=== PATIENT | male | born 1965 | race Caucasian/White ===

== ENCOUNTER → 2016-11-29 | Outpatient (CLI) | payer MEDICAID | LOC: RAD 14:42 | PROVIDERS: ATTEND Nurse Practitioner Adult Health | DX: R91.8 Other nonspecific abnormal finding of lung field (principal) | CPT/HCPCS: 71250 ==

== ENCOUNTER 2017-02-17 06:50 | Emergency (ER) | payer MEDICAID ==
[2017-02-17] MEDS ORDERED: NORMAL SALINE 1000 ML 1,000 ML IV ONE (07:53)
--- NOTE | 2017-02-17 07:56 | ER Document Report ---
ED General - General Time seen by provider: 07:45 Mode of Arrival: Ambulatory Information source: Patient TRAVEL OUTSIDE OF THE [place] IN LAST 30 DAYS: No - HPI Onset: Other - see HPI note <IMER CARVALHO - Last Filed: 02/17/17 09:10> <LON MEEKS - Last Filed: 02/17/17 11:38> - General Chief Complaint: Bloody Stools Stated Complaint: ABDOMINAL PAIN,BLOOD IN URINE AND STOOL Notes: Patient is a 51 year old male presenting to the ED for hematuria and abdominal pain. Patient states he has had hematuria since Saturday night. Patient states this morning he had clots in his urine. Patient states his lower right abdominal pain radiates into his scrotum. On the patient had a bowel movement that was bloody with mucus. Patient also complains of some flank pains that started last night and have continued into this morning. Patient has a history of diabetes mellitus but is unmedicated; patient states his doctor ran his blood work and he had an A1C of 9.2. Patient states his doctor told him to change his diet for 60 days and then they will test the blood work again. Patient also has a history of COPD but states he has cut back on his smoking. Patient has no known allergies. (IMER CARVALHO) - Related Data Allergies/Adverse Reactions: No Known Allergies Allergy (Unverified 02/17/17 06:53) Past Medical History - General Information source: Patient - Social History Smoking Status: Current Every Day Smoker Cigarette use (# per day): Yes - 1.5 packs per week Family History: None Patient has suicidal ideation: No Patient has homicidal ideation: No Pulmonary Medical History: Reports: Hx COPD Endocrine Medical History: Reports: Hx Diabetes Mellitus Type 2 - not treated with medication Past Surgical History: Reports: Hx Orthopedic Surgery - anterior cervical fusion of C4-C5, Other - left chest pulmonary nodule removed - Immunizations Hx Diphtheria, Pertussis, Tetanus Vaccination: Yes <IMER CARVALHO - Last Filed: 02/17/17 09:10> Review of Systems - Review of Systems Constitutional: No symptoms reported EENT: No symptoms reported Cardiovascular: No symptoms reported Respiratory: No symptoms reported Gastrointestinal: See HPI, Abdominal pain, Black stools. denies: Diarrhea Genitourinary: See HPI, Dysuria, Hematuria Male Genitourinary: See HPI Musculoskeletal: No symptoms reported Skin: No symptoms reported Hematologic/Lymphatic: No symptoms reported Neurological/Psychological: No symptoms reported -: Yes All other systems reviewed and negative <IMER CARVALHO - Last Filed: 02/17/17 09:10> Physical Exam - Vital signs Interpretation: Tachycardic - General General appearance: Appears well, Alert In distress: Mild - HEENT Head: Normocephalic Eyes: Normal Pupils: PERRL Mucous membranes: Moist - Respiratory Respiratory status: No respiratory distress Chest status: Nontender Breath sounds: Normal Chest palpation: Normal - Cardiovascular Rhythm: Regular Heart sounds: Normal auscultation Murmur: No - Abdominal Inspection: Normal Distension: No distension Bowel sounds: Normal Tenderness: Tender - RLQ tenderness to palpation, pain to RLQ when dropping from toes to heals Organomegaly: No organomegaly - Back Back: Normal, Nontender - Extremities General upper extremity: Normal inspection, Normal ROM, Normal strength General lower extremity: Normal inspection, Normal ROM, Normal strength - Neurological Neuro grossly intact: Yes Cognition: Normal Orientation: AAOx4 Jay [place] Coma Scale Eye Opening: Spontaneous [place] Coma Scale Verbal: Oriented Jay Jay Coma Scale Motor: Obeys Commands Jay Jay Coma Scale Total: 15 Speech: Normal Sensory: Normal - Psychological Associated symptoms: Normal affect, Normal mood - Skin Skin Temperature: Warm Skin Moisture: Dry <IMER CARVALHO - Last Filed: 02/17/17 09:10> - Back Back: Tender - There is some left CVA percussion tenderness, there is no right sided tenderness. No: Nontender <LON MEEKS - Last Filed: 02/17/17 11:38> - Vital signs Vitals: Temp Pulse Resp BP Pulse Ox 97.4 F 113 H 18 148/82 H 95 02/17/17 06:54 02/17/17 06:54 02/17/17 06:54 02/17/17 06:54 02/17/17 06:54 Course - Laboratory Result Diagrams: 02/17/17 08:05 02/17/17 08:05 <IMER CARVALHO - Last Filed: 02/17/17 09:10> - Laboratory Result Diagrams: 02/17/17 08:05 02/17/17 08:05 - Diagnostic Test Radiology reviewed: Image reviewed, Reports reviewed - CT is limited renal stone protocol shows left perinephric fat stranding and mild left proximal periureteral fat stranding. This is suspicious for recently passed stone, with pyelonephritis, however neoplasm cannot be ruled out. There is also a small pericarditis reported. <LON MEEKS - Last Filed: 02/17/17 11:38> - Vital Signs Vital signs: Temp Pulse Resp BP Pulse Ox 97.4 F 113 H 18 148/82 H 95 02/17/17 06:54 02/17/17 06:54 02/17/17 06:54 02/17/17 06:54 02/17/17 06:54 - Laboratory Laboratory results interpreted by me: 02/17/17 02/17/17 02/17/17 07:59 08:05 08:05 WBC 15.1 H Absolute Neutrophils 10.5 H Absolute Monocytes 1.6 H Sodium 132.9 L Chloride 96 L Glucose 347 H Urine Protein 100 H Urine Glucose (UA) >=500 H Urine Blood LARGE H Ur Leukocyte Esterase LARGE H Discharge <IMER CARVALHO - Last Filed: 02/17/17 09:10> <LON MEEKS - Last Filed: 02/17/17 11:38> - Discharge Clinical Impression: Pyelonephritis, acute, Right lower quadrant abdominal pain Urinary tract infection Qualifiers: Urinary tract infection type: acute pyelonephritis Qualified Code(s): N10 - Acute pyelonephritis Diabetes Qualifiers: Diabetes mellitus type: type 2 Diabetes mellitus complication status: without complication Diabetes mellitus termite exterminator helper insulin use: without termite exterminator helper use Qualified Code(s): E11.9 - Type 2 diabetes mellitus without complications Condition: Stable Disposition: HOME, SELF-CARE Additional Instructions: Pyelonephritis: Your evaluation shows evidence of pyelonephritis. This is an infection in the kidney. Typical symptoms are fever, pain in the flank, pain on urination, and frequent urination. Many cases of pyelonephritis can be treated at home. Hospital care may be necessary for patients who are very ill, or elderly or . Pyelonephritis is treated with antibiotics. Be sure to take all the medication as prescribed. Drink plenty of liquids (about three quarts per day) . You may take acetaminophen for fever. You should feel significantly improved within two days. You should have a recheck of your urine in about one week to insure that the infection is gone. Return for a re-examination if your symptoms worsen in any way -- such as high fever, shaking chills, severe weakness or dizziness, severe pain, or inability to pass your urine. Kidney Stone: You may have passed a kidney stone. These stones are usually due to increased calcium or uric acid concentrations in your urine. Stones within the kidney itself are not painful. The pain occurs as the stone leaves the kidney to pass down the long tube, called the ureter, leading to the bladder. If the stone is small, it will usually pass by itself. Most patients can pass the stone at home. You will usually receive medications for pain, nausea or vomiting, and sometimes a medication to assist in passing the kidney stone. However, if the pain is very severe or if vomiting prevents you from taking oral pain medications, you may need to return for further treatment. Drink three or four quarts of fluids per day. You will be given pain medication (if needed) and urine strainers. Strain all your urine to see if the stone passes. If your doctor has asked you to bring the stone in for analysis, return with the stone once it has passed. Return if pain or vomiting become severe, if you develop a high fever, if you are unable to pass your urine, or if other unusual symptoms occur. TAKE THE MEDICATION PRESCRIBED. TAKE TYLENOL AND MOTRIN FOR PAIN AND FEVER. DRINK LOTS OF FLUIDS. REST. FOLLOW UP WITH YOUR DOCTOR SATURDAY TO CHECK ON THE URINE CULTURE. RETURN TO THE EMERGENCY ROOM IF ANY NEW OR WORSENING SYMPTOMS. Prescriptions: Ciprofloxacin HCl [Cipro 500 mg Tablet] 500 mg PO BID #14 tablet Referrals: VIJAY SANTANA MD [Primary Care Provider] - Follow up as needed Scribe Attestation: 02/17/17 11:37 I personally performed the services described in the documentation, reviewed and edited the documentation which was dictated to the scribe in my presence, and it accurately records my words and actions. (LON MEEKS) Scribe Documentation - Scribe Written by Federioc:: Imer Carvalho 02/17/17 9:30 acting as scribe for :: Linda <IMER CARVALHO - Last Filed: 02/17/17 09:10>
[2017-02-17 08:19] LABS: ABSOLUTE BASOPHILS # (AUTO) 0.2 10^3/uL (0.0-0.2); ABSOLUTE EOSINOPHILS # (AUTO) 0.1 10^3/uL (0.0-0.6); ABSOLUTE LYMPHOCYTES (AUTO) 2.7 10^3/uL (0.5-4.7); ABSOLUTE MONOCYTES (AUTO) 1.6 10^3/uL (0.1-1.4); ABSOLUTE NEUT (AUTO) 10.5 10^3/uL (1.7-8.2); BASOPHILS % (AUTO) 1.2 % (0-2); EOSINOPHILS % (AUTO) 0.9 % (0-6); HEMATOCRIT 40.6 % (37.9-51.0); HEMOGLOBIN 13.7 g/dL (13.5-17.0); HGB HCT DIFFERENCE 0.5; LYMPHOCYTES % (AUTO) 17.9 % (13-45); MEAN CORPUSCULAR HEMOGLOBIN 29.3 pg (27.0-33.4); MEAN CORPUSCULAR HGB CONC 33.9 g/dL (32.0-36.0); MEAN CORPUSCULAR VOLUME 87 fl (80-97); MONOCYTES % (AUTO) 10.8 % (3-13); RED BLOOD COUNT 4.69 10^6/uL (4.35-5.55); RED CELL DISTRIBUTION WIDTH 13.4 % (11.5-14.0); SEGMENTED NEUTROPHILS % (AUTO) 69.2 % (42-78); WHITE BLOOD COUNT 15.1 10^3/uL (4.0-10.5)
[2017-02-17 08:22] LABS: APPEARANCE,URINE TURBID; BILIRUBIN,URINE NEGATIVE (NEGATIVE); GLUCOSE, URINE >=500 mg/dL (NEGATIVE); KETONES,URINE NEGATIVE (NEGATIVE); LEUKOCYTE ESTERASE,URINE LARGE (NEGATIVE); NITRITE,URINE NEGATIVE (NEGATIVE); PROTEIN,URINE 100 mg/dL (NEGATIVE); URINE SPECIFIC GRAVITY 1.006; UROBILINOGEN,URINE NEGATIVE mg/dL (<2.0)
[2017-02-17 08:48] LABS: ALANINE AMINOTRANSFERASE 67 U/L (21-72); ALBUMIN 3.6 g/dL (3.5-5.0); ALKALINE PHOSPHATASE 95 U/L (38-126); ANION GAP 15 (5-19); ASPARTATE AMINO TRANSFERASE 36 U/L (17-59); BILIRUBIN,DIRECT 0.4 mg/dL (0.0-0.4); BILIRUBIN,TOTAL 1.1 mg/dL (0.2-1.3); BLOOD UREA NITROGEN 12 mg/dL (7-20); CALCIUM 9.1 mg/dL (8.4-10.2); CARBON DIOXIDE 22 mmol/L (22-30); CHLORIDE 96 mmol/L (98-107); CREATININE RESULT 0.76 mg/dL (0.52-1.25); GLUCOSE 347 mg/dL (75-110); POTASSIUM 4.6 mmol/L (3.6-5.0); SODIUM 132.9 mmol/L (137-145); TOTAL PROTEIN 6.6 g/dL (6.3-8.2)
[2017-02-17] MEDS ORDERED: KETOROLAC TROMETHAMINE INJ/PF 30 MG/1 ML SDV IV ONE (10:46)
[2017-02-17] MEDS ORDERED: CEFTRIAXONE 1 GM/D5W RTU 50 ML IV ONE (10:46)
[2017-02-17] MEDS ORDERED: CIPROFLOXACIN HCL 500 MG TABLET PO ONE (11:37)
[2017-02-17 11:52] VITALS: BP 121/71
== END 2017-02-17 12:18 | disposition home or self-care (01) ==
LOC: ER 06:50
DX: N10 Acute pyelonephritis (principal); E11.9 Type 2 diabetes mellitus without complications; R10.31 Right lower quadrant pain; K92.1 Melena; R31.9 Hematuria, unspecified; F17.210 Nicotine dependence, cigarettes, uncomplicated
CPT/HCPCS: 99284; 96361; 96375; 96365; 36415; 87086; 85025; 87088; 80053; 81001; 87186; 76380; J3490; J1885; J7030; J0696

== ENCOUNTER → 2017-03-19 | Outpatient (CLI) | payer MEDICAID | LOC: RAD 09:50 | PROVIDERS: ATTEND Internal Medicine Pulmonary Disease | DX: R91.8 Other nonspecific abnormal finding of lung field (principal) | CPT/HCPCS: 71250 ==

== ENCOUNTER → 2017-03-29 | Outpatient (CLI) | payer MEDICAID | LOC: RAD 08:52 | PROVIDERS: ATTEND Internal Medicine Pulmonary Disease | DX: R93.2 Abnormal findings on diagnostic imaging of liver and biliary tract (principal) | CPT/HCPCS: 74170; 82565 ==